=== PATIENT | male | born 1950 | race Caucasian/White ===

== ENCOUNTER 2017-05-23 19:10 | Observation (INO) | payer MEDICARE, MEDICAID ==
[~2017-05-23] VITALS: Ht 170.2 cm; Wt 91.6 kg
[~2017-05-23 19:10] MED LIST: MIRT15TA6 PO; QUET25TA PO
[2017-05-23 19:18] VITALS: BP 151/87; PULSE 94; RESP 18; O2SAT 97
[2017-05-23 20:39] LABS: BASOPHILS % (AUTO) 0.2 % (0-3); EOSINOPHILS % (AUTO) 0.4 % (0-5); MONOCYTES % (AUTO) 5.4 % (4-12); Mean Corpuscular Hemoglobin 32.2 pg (27.0-35.0); Mean Corpuscular Volume 92.6 fL (81-100); NEUTROPHILS % (AUTO) 86.7 % (40-74); Platelet Count 197 bil/L (150-400)
--- NOTE | 2017-05-23 20:39 | ED.REPORT ---
HPI-Abd Pain M 40 and Over Date of Service May 23, 2017 ED Provider: Simon Cosme MD Pt is a 67 year old male with a history of dementia who presents to the ED complaining of RLQ abdominal pain onset this morning. He c/o associated vomiting , diarrhea, fever (100.5), and decreased appetite onset yesterday. His last episode of diarrhea was at 17:00. Upon presenting to the ED, the pt's symptoms are completely resolved. Per family, the pt presented to on 05/17/17 with similar symptoms that were relieved up until yesterday. The pt has not been around anyone ill recently. Nursing Notes Stated Complaint: VOMITING,DIARRHEA Chief Complaint: General Complaint Nursing Notes Reviewed: Yes ([employer], [place] not reconciled) Allergies: Coded Allergies: No Known Allergies (Unverified Allergy, Unknown, 05/23/17) Scheduled Mirtazapine (Mirtazapine) 15 Mg Tablet 0 PO HS start with 2 tabs qHS, may increase to 3 tabs qHS as needed after one week Quetiapine Fumarate (Seroquel) 25 Mg Tablet 50 MG PO HS General Time Seen by MD: 20:36 Chief Complaint Abdominal pain Hx Obtained From: Patient Arrived By: Walk-in Sudden in Onset?: No Onset Occurred: 5 - 8 hours ago Symptom Duration: Duration unknown Location: : RLQ Quality: Painful Radiation: : Does not radiate Severity: Current: No pain currently Severity: Maximum: Moderate Recent Healthcare: Recent doctor visit Similar Sx Previous: Yes Past Medical History Past Medical History Lewy Body Dementia. Sleep apnea. Chronic edema Past Surgical History T&A Hernia Reports: Inguinal hernia repair Family History Reports: Coronary artery disease, Hypertension Smoking History Former Smoker Social History Alcohol Use: "Social" Other Social History: Good social support, , Local resident Ambulatory Status Independent Review of Systems Constitutional: Reports: Fever (resolved) Respiratory: Denies: Non-productive cough, Shortness of breath GI: Reports: Abdominal pain (resolved), Diarrhea (resolved), Vomiting (resolved ) Complete sys rev & neg: except as marked. Physical Exam Initial Vital Signs Vital Signs (First) Date Time Temp Pulse Resp B/P Pulse Ox O2 Delivery O2 Flow Rate FiO2 05/23/17 19:18 37.2 94 18 151/87 97 Room Air Initial VS: Reviewed, Vital signs normal Head / Eyes: Atraumatic, Normocephalic Neck: Supple, Full range of motion Extremities: Vascular intact, Neuro intact Skin: Warm, Dry, No cyanosis Neurologic: Alert, Oriented, Nonfocal Psychiatric: Mood/affect normal, Behavior normal General/Constitutional: Awake, Alert Dementia Respiratory / Chest: Atraumatic, Breath sounds NL, Breath sounds = bilat Cardiovascular: Heart rate NL, Regular rhythm, Heart sounds NL Abdomen: Atraumatic, Soft, Non-tender Back: Atraumatic, Full range of motion Interpretation & Diagnostics Interpretation & Diagnostics: Stool PCR panel from Thursday was negative Lab Results Interpretation Result Diagram: 05/23/17200205/23/172002 Test 05/23/17 20:03 05/23/17 21:27 White Blood Count 10.8th/mm3 (3.8-10.1) Red Blood Count 4.88mil/mm3 (4.40-5.80) Hemoglobin 15.7g/dL (13.8-17.2) Hematocrit 45.2% (41.0-50.0) Mean Corpuscular Volume 92.6fL (81-100) Mean Corpuscular Hemoglobin 32.2pg (27.0-35.0) Mean Corpuscular Hemoglobin Concent 34.7% (32.0-37.0) Red Cell Distribution Width 11.9% (12.3-15.4) Platelet Count 197bil/L (150-400) Neutrophils (%) (Auto) 86.7% (40-74) Lymphocytes (%) (Auto) 7.0% (14-46) Monocytes (%) (Auto) 5.4% (4-12) Eosinophils (%) (Auto) 0.4% (0-5) Basophils (%) (Auto) 0.2% (0-3) Sodium Level 138mEq/L (134-144) Potassium Level 4.2mEq/L (3.5-5.2) Chloride Level 100mEq/L (97-108) Carbon Dioxide Level 21mmol/L (18-29) Blood Urea Nitrogen 18mg/dL (8-27) Creatinine 0.99mg/dL (0.76-1.27) Estimat Glomerular Filtration Rate 80mL/min (>59) Glucose Level 150mg/dL (60-99) Lactic Acid Level 2.1mmol/L (0.4-2.0) Calcium Level 9.5mg/dL (8.5-10.1) Magnesium Level 2.1mg/dL (1.6-2.6) Total Bilirubin 0.6mg/dL (0.0-1.2) Aspartate Amino Transf (AST/SGOT) 21U/L (0-50) Alanine Aminotransferase (ALT/SGPT) 19U/L (0-44) Alkaline Phosphatase 73U/L (25-160) Total Protein 7.8g/dL (6.4-8.4) Albumin 4.6g/dL (3.4-5.0) Lipase 27U/L (13-60) Hold Gan Top Tube Received (Received) Lab Results Interpretation: CBC trace leukocytosis CMP normal Lactic acid marginally elevated Repeat stool panel pending Blood cultures [address] Abd / Pelvis Interpretation IMPRESSION: NO appendicities, diverticulitis, or mechanical small bowel obstruction. Nonspecific enteritis enterocolitis pattern in the right clinical setting. Inicidental findings above. Transmitted to the ED at 23:03 by Serena Chopra M.D. Study type: Abdominal CT IV contrast Interpretation / Wet Read by: Interpret - Radiologist Re-Eval/Medical Decision Med Decision/Clinical Course This is a 67-year-old male severe fluid body dementia presents with fever about pain vomiting and diarrhea. All history is from the family as the patient cannot provide any useful history due to the dementia. He resides at a local care facility. Apparently he had a vomiting diarrheal illness and was seen on Thursday with concern for dehydration, and a workup at that time including stool cultures are negative. Symptoms then resolved, but returned and were more severe today with fever, report of abdominal pain, vomiting, and then profuse diarrhea. The patient's had no antibiotic exposures, no prior history C. difficile. The patient generally appears in no distress, but he is severely demented and unable provide any additional history. His abdomen is nontender here. He has had no nausea or vomiting in the department, but has had extensive, repeated numerous loose stools. Blood work reveals a marginally elevated lactic acid, but was otherwise generally normal. Given the profuse recurrent stools for repeat stool study was sent. He received IV fluids, continues to have ongoing diarrhea-given the severity is concern for the patient developing significant dehydration and not being able to care for self. He is DNR/DNI. Given his age, dementia, and inability to provide much history-CT abdomen was obtained and the suggestive of nonspecific enteritis which physical patient. The patient is being admitted for continued hydration and monitoring. This point I am not finding indication for an [place] revealed therapy. Source of Hx: Old records Time of Eval: 22:17 Re-Evaluation/Progress Note: Pt rechecked. Updated pt on progress. All questions addressed. Time of Eval: 23:15 Re-Evaluation/Progress Note: Pt rechecked. Informed pt and family of plan for admission. Pt and family understand and agree with plan for admission. All questions addressed. Consultation : Referral / Consult Name: SriramRinajt Giron DO Consulted With: Hospitalist Call Returned at: 23:13 Phlebotomy Instructor: Will see patient, Agrees with eval, Agrees with plan, Accepts admit Differential Diagnosis: Negative: Abdominal aortic aneurysm, Abscess, Aortic dissection, Bowel obstruction, Diverticular disease, Esophageal rupture, Gun shot wound abdomen, Peritonitis Counseled Regarding: Diagnosis, Lab results, Need for admission Discharge & Departure Primary Impression: Enteritis Additional Impressions: Enterocolitis Dementia Dementia type: Lewy body dementia Dementia behavioral disturbance: without behavioral disturbance Qualified Code: G31.83 - Dementia with Lewy bodies Elevated lactic acid level Dehydration Disposition: ADMITTED TO HOSPITAL Vital Signs - All Vital Signs Date Time Temp Pulse Resp B/P Pulse Ox O2 Delivery O2 Flow Rate FiO2 05/23/17 19:18 37.2 94 18 151/87 97 Room Air )( All Prior VS Reviewed: Yes Condition: Stable Referrals: Tee Torres MD (PCP) Haibdanielito Attestation Portions of this note were transcribed by Kimmie William. I, Dr. Cosme personally performed the history, physical exam and medical decision-making; I reviewed and confirmed the accuracy of the information in the transcribed note. Signed by: Vesna Rich, 05/23/17. copies to: Tee Torres MD, Matthew F MD May 23, 2017 20:39 Kimmie Caro May 23, 2017 20:53
[2017-05-23] MEDS ORDERED: 0.9% Sodium Chloride 1,000 ML IV ONE (20:40)
[2017-05-23 20:43] LABS: Magnesium 2.1 mg/dL (1.6-2.6)
[2017-05-23 23:17] VITALS: BP 112/68; PULSE 84; RESP 17; O2SAT 96
[2017-05-23] MEDS ORDERED: Alum-Mag Hydrox-Simeth 30 mL Suspension PO PRN (23:30)
[2017-05-23] MEDS ORDERED: Polyethylene Glycol (PEG) 17 Gm Powder PO PRN (23:30)
[2017-05-23] MEDS ORDERED: Ondansetron 2 mg/mL 2 mL Inj IVPUSH PRN (23:30)
[2017-05-23 23:44] VITALS: BP 112/68; PULSE 84; RESP 17; O2SAT 96
[2017-05-24 00:08] VITALS: BP 162/80; PULSE 83; RESP 16; O2SAT 96
[2017-05-24] MEDS ORDERED: 0.9% Sodium Chloride 1,000 ML IV ONE (00:30)
--- NOTE | 2017-05-24 00:44 | PCM.HPMED ---
Subjective Date of Service May 24, 2017 Primary Provider: Admitting Physician: Rina Bhatia DO Primary Care Physician: Tee Torres MD Attending Physician: Rina Bhatia DO Admit Status: From the Emergency Department Chief Complaint: Nausea, vomiting and diarrhea History of Present Illness: Khurram Mann is a 67-year-old male with past medical history remarkable for Lewy body dementia as well as hypertension and insomnia who presents with nausea vomiting and diarrhea the last day. The patient is a long-term resident of [facility] in [place] due to his severe Lewy body dementia. One week ago the patient developed similar symptoms of nausea vomiting and diarrhea and the patient was sent to urgent care where stool was sent for evaluation which was negative and symptoms resolved after a few days without issue. The patient's daughter was contacted today by the nursing staff at [facility] stating that the nausea and vomiting and diarrhea had recurred as well as a low- grade fever reported at 100.5. The daughter states that the patient had been complaining this morning about right lower quadrant abdominal pain while having a bowel movement but denies any blood in his stool. The patient currently denies any fever or chills, nausea or abdominal pain. [facility] ED reports that the patient has had copious amounts of diarrhea with the sample sent for PCR. The daughter states that the patient has not been on any antibiotics recently and nobody in [facility] has been sick with a similar symptoms. Of note the patient's daughter has had C. difficile 3 years ago after being placed on antibiotics however has not had any recurrence since. The patient had an extended hospital stay at [facility] requiring 2 months of inpatient in September 2016 which was reported as difficulty with stabilizing the dementia through several medication changes for the first month, followed by difficulty with placement the second month as the patient's has stage IV colon cancer. Review of Systems: A comprehensive review of systems was completed and all are negative except for what included in the history of present illness. 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 Hx Alcohol Use: Yes (RARELY) Hx Substance Use: No Hx Tobacco Use: Yes Smoking Status: Former Smoker Living Arrangement: Assisted Living ([facility]) Additional Information The patient's has stage IV colon cancer Exam Vital Signs Vital Sign - Last Date Time Temp Pulse Resp B/P Pulse Ox O2 Delivery O2 Flow Rate FiO2 05/24/17 00:08 36.8 83 16 162/80 96 Room Air Intake and Output 05/23/17 05/23/17 05/24/17 Cumulative From/Thru 15:00 23:00 07:00 05/23/17 19:18 - 05/23/17 20:55 Intake Total 1000 ml 1000 ml Balance 1000 ml 1000 ml Intake IV Total 1000 ml 1000 ml Exam General: Alert and cooperative senior male appearing approximately stated age in no acute distress Eyes: Pupils equal round and reactive to light, anicteric sclera, noninjected conjunctiva HENT: Normocephalic atraumatic, moist mucous membranes without central cyanosis , oropharynx clear without purulent exudate or cobblestoning mucosa Neck: Supple, trachea midline, without thyromegaly or JVD Cardiovascular: Regular rate and regular rhythm, S1-S2 present, without murmurs rubs or gallops noted Lungs: Clear to auscultation bilaterally without wheezing rales or rhonchi Abdomen: Soft, nontender, nondistended, tympanic to percussion, normal active bowel sounds, without organomegaly Extremities: Mild edema noted in lower extremities through ankle bilaterally worse on right than left, no cyanosis or clubbing noted, pulses intact bilaterally at dorsalis pedis and radial : No Whitman catheter in place Skin: Warm and dry MSK: Able to move all extremities Neuro: Nonfocal neurologic exam Psych: Pleasant and friendly able to respond appropriately in short direct sentences however longer explanations tend to become tangential; Normal mood and affect Lab and Diagnostics Result Diagram: 05/23/17200205/23/172002 X-Rays, CTs and MRIs CT Abd / Pelvis Interpretation IMPRESSION: NO appendicities, diverticulitis, or mechanical small bowel obstruction. Nonspecific enteritis enterocolitis pattern in the right clinical setting. Inicidental findings above. Transmitted to the ED at 23:03 by Serena Chopra M.D. Study type: Abdominal CT IV contrast Interpretation / Wet Read by: Interpret - Radiologist Assessment & Plan Khurram Mann is a 67-year-old male with past medical history remarkable for Lewy body dementia as well as hypertension and insomnia who presents with nausea vomiting and diarrhea the last day. # Acute gastroenteritis, POA - Patient's daughter reports a history of nausea vomiting and diarrhea with low- grade fever of 100.5 per nursing staff at [facility] - Patient does not meet SIRS criteria with WBC 10.8 without bandemia, HR 94, RR 18, Temp 37.2 - Procalcitonin of 0.16 not consistent with bacterial infection - Urgent care stool PCR from May 17 was negative - [facility] ED reports copious diarrhea at least 6 bouts over 6 hours, with samples sent for repeat PCR - CT scan abdomen and pelvis with IV contrast shows nonspecific enteritis and enterocolitis - Patient received 1 L of IV fluids in the ED, will be given a second liter as his increased risk of IV contrast induced nephropathy secondary to dehydration - Lactic Acid of 2.1 in ED this was redrawn at admission and will be trended q 2 hours until normal - Zofran available # Chronic Lewy Body Dementia - Rivastigmine 6mg BID to be restarted in the AM # Chronic Insomnia - Patient is on chronic Trazodone and Melatonin - will hold PO options to avoid risk of vomiting and aspiration - monitor # Chronic hypertension - Continue regular amlodipine 5 mg in the a.m. # Acute hyperglycemia - Hemoglobin A1c ordered # history of obstructive sleep apnea - Continuous O2 monitoring overnight DVT prophylaxis: Heparin 5000u TID subcutaneous GI prophylaxis: Not indicated at this time Bowel regimen available when necessary CODE STATUS: DNR/DNI discussed with ED provider and family The patient is admitted for observation status with expected length of stay less than to midnights giving presenting symptoms, likely diagnosis, possible complications, and required treatment. Pain Evaluation: Adequate Pain Control GI Prophylaxis: Not indicated VTE Prophylaxis Indicated: Meets Criteria for Anticoag Therapy VTE Prophylaxis: Sub-Q Enoxaparin Resuscitation Status: DNR/DNI:Do Not Resuscitate/Intubate Attending Statement The patient was seen and examined together with house staff on 05/23/2017 and I agree with the history, exam and plan as outlined in the note above. Janak Coates DO May 24, 2017 00:44 Rina Bhatia DO May 24, 2017 05:09
[2017-05-24] MEDS: Heparin 5,000 Unit/mL Inj SUBQ SCH ×3 (01:19→16:30)
[2017-05-24 03:48] VITALS: BP 142/74; PULSE 78; RESP 16; O2SAT 97
[2017-05-24] MEDS ORDERED: 0.9% Sodium Chloride 1,000 ML IV SCH (05:10)
--- NOTE | 2017-05-24 05:40 | NUR ---
Admit to [facility] Admit from ED, dx: diarrhea, dehydration. Patient is alert, oriented to self and occassionally place, w/ hx of dementia. Able to voice needs, pleasant and cooperative. SBA mobility, steady gait. Accompanied by daughter Martha, who left her number on the white board. CT ABD and pelvis pending. DNR/DNI. Per ED report, patient received 1L NS prior to admitting to [facility]. Additional 1L ordered, given. No further loose stools at time of this note. CDiff toxin/PCR sent. Patient oriented to room and use of call light. Has been resting comfortably thru the NOC. VS are stable. CTM for changes. Addendum: IVF ordered, NS at 100cc/hour infusing via LPIV. No further loose stools at this time. Mentation remains confused, but easily directable. BA on for safety. Urinal at bedside, but exits the bed w/o assistance. Frequent safety/room checks thru rest of NOC.
[2017-05-24 06:05] LABS: BASOPHILS % (AUTO) 0.3 % (0-3); EOSINOPHILS % (AUTO) 3.6 % (0-5); MONOCYTES % (AUTO) 9.6 % (4-12); Mean Corpuscular Volume 93.5 fL (81-100); NEUTROPHILS % (AUTO) 64.8 % (40-74); Platelet Count 145 bil/L (150-400)
[2017-05-24] MEDS ORDERED: AMLO5TAB2 PO (07:32)
[2017-05-24] MEDS ORDERED: RIVA6CAP5 PO (07:32)
[2017-05-24] MEDS ORDERED: MELA3TAB11 PO (07:32)
[2017-05-24] MEDS ORDERED: TRAZ-115 PO (07:33)
--- NOTE | 2017-05-24 08:19 | DRSVH ---
PROCEDURE: CT ABDOMEN AND PELVIS WITH CONTRAST ([id number]) INDICATIONS: FEVER, ABD PAIN TECHNIQUE: After the administration of intravenous contrast, 5 mm thick sections acquired from the diaphragm to the symphysis. 5 mm coronal and sagittal reformats were acquired. For radiation dose reduction, the following was used: automated exposure control, adjustment of mA and/or kV according to patient siz e. COMPARISON: None. FINDINGS: Image quality: Good ABDOMEN: Lung bases: Lung bases are clear. Heart size is normal. Solid organs: Liver and spleen are normal in size and enhancement. Gallbladder is within normal miller its.. Biliary system is non dilated. Pancreas enhances normally. No adrenal nodules. Kidneys demo nstrate normal size and enhancement, without hydronephrosis. Peritoneum and bowel: Bowel loops demonstrate normal wall thickness and caliber. No free fluid or a ir. There is a normal appendix. Liquid stool is noted throughout the colon suggesting diarrhea. Nodes and vessels: No retroperitoneal or mesenteric adenopathy by size criteria. Aorta and inferior vena cava are normal in size. Miscellaneous: No ventral hernias. PELVIS: Genitourinary: Bladder wall thickness is normal. Miscellaneous: No adenopathy. Small fatty right inguinal hernia noted. Bones: There is an L5 pars defect with a grade 1-2 anterolisthesis of L5 on S1.. No vertebral body c ompression fractures. IMPRESSION: Cause of the right lower quadrant pain not identified. The gallbladder, right kidney, appendix are all normal. Air-fluid levels indicating liquid stool are seen throughout the colon to the rectum. Diarrhea with b e likely. Is there any evidence for gastroenteritis? L5 pars defect noted. Dictated by: Emerson Barnes M.D. on 05/24/2017 at 8:12 this report corresponds to the findings of dillan cotton preliminary NSR report. Approved by: Emerson Barnes M.D. on 05/24/2017 at 8:17
--- NOTE | 2017-05-24 08:29 | NUR ---
confusion/agitation pt has pulled his IV out and wants to leave. pt doesn't believe this RN when I tell him that I have called his daughter, doesn't believe it is her. pt refuses to go to his room, this RN has requested a sitter or hugs tag. pt's daughter is going to come in as soon as she can to be with pt.
--- NOTE | 2017-05-24 09:01 | NUR ---
refusing care pt will not allow this RN or the WAREHOUSE PACKER to assess, treat, or help in anyway. pt will not return to his room. MD aware and will see patient next.
--- NOTE | 2017-05-24 09:01 | NUR ---
Behavior Pt up pacing in the selby, gown half on-unwilling to put on pants or robe. Unable to be redirected back to his room, unable to reorient-pt becomes suspicious "that's what the other ones were telling me, but it's not true! You all say you're going to do it, but then it's a different story" (unable to clarify what pt wants). , Nolvia, called at pt's request-she is unable to come visit as she is [facility] on vacation and cannot come in, she reiterated to this RN that it is important for pt to take his meds or "he's gonna just take off". MD aware of situation
--- NOTE | 2017-05-24 09:29 | PCM.PNMED ---
Subjective Date of Service May 24, 2017 Subjective Patient wandering about the floor, pulled out IV and trying to remove gown. However no real diarrhea since admission, on soft stool. No other problems noted. Exam Vital Signs Vital Sign - Last Date Time Temp Pulse Resp B/P Pulse Ox O2 Delivery O2 Flow Rate FiO2 05/24/17 03:48 36.6 78 16 142/74 97 Room Air Intake and Output 05/23/17 05/23/17 05/24/17 Cumulative From/Thru 15:00 23:00 07:00 05/23/17 19:18 - 05/24/17 05:58 Intake Total 1000 ml 999 ml 1999 ml Output Total 300 ml 300 ml Balance 1000 ml 699 ml 1699 ml Intake Oral 0 ml 0 ml IV Total 1000 ml 999 ml 1999 ml Output Urine Total 300 ml 300 ml Exam Skin; warm dry no rash CV; reg no murmur Resp; clear GI; soft non acute benigh, soft Lab and Diagnostics Result Diagram: 05/24/17 0520 05/24/17 0520 X-Rays, CTs and MRIs CT Abd / Pelvis Interpretation IMPRESSION: NO appendicities, diverticulitis, or mechanical small bowel obstruction. Nonspecific enteritis enterocolitis pattern in the right clinical setting. Inicidental findings above. Transmitted to the ED at 23:03 by Serena Chopra M.D. Study type: Abdominal CT IV contrast Interpretation / Wet Read by: Interpret - Radiologist Assessment & Plan Khurram Mann is a 67-year-old male with past medical history remarkable for Lewy body dementia as well as hypertension and insomnia who presents with nausea vomiting and diarrhea the last day. # Acute Diarrhea, POA, improving -differntial seconday to exalon, non specific gastroenteritis - Urgent care stool PCR from May 17 was negative as it was here yesterday - [facility] ED reports copious diarrhea at least 6 bouts over 6 hours, with samples sent for repeat PCR - CT scan abdomen and pelvis with IV contrast shows nonspecific enteritis and enterocolitis - discontinue exelon (family daughter tells me dose was increased two weeks ago ( resume at lower dose # Chronic Lewy Body Dementia - Rivastigmine 6mg BID hold for now # Chronic Insomnia - continue is on chronic Trazodone and Melatonin # Chronic hypertension - Continue regular amlodipine 5 mg in the a.m. # Acute hyperglycemia - Hemoglobin A1c ordered # history of obstructive sleep apnea - Continuous O2 monitoring overnight DVT prophylaxis: Heparin 5000u TID subcutaneous GI prophylaxis: Not indicated at this time Bowel regimen available when necessary CODE STATUS: DNR/DNI discussed with ED provider and family The patient is admitted for observation status with expected length of stay less than to midnights giving presenting symptoms, likely diagnosis, possible complications, and required treatment. Disposition; live [facility] Hosea Burks -pcp is Dr Alcocer GI Prophylaxis: Not indicated VTE Prophylaxis: Sub-Q Enoxaparin Resuscitation Status: DNR/DNI:Do Not Resuscitate/Intubate Sierra Irvin MD May 24, 2017 09:29 VTE Prophylaxis: Sub-Q Enoxaparin Resuscitation Status: DNR/DNI:Do Not Resuscitate/Intubate Sierra Irvin MD May 24, 2017 09:29
[2017-05-24 10:18] VITALS: BP 129/73; PULSE 71; RESP 16; O2SAT 96
--- NOTE | 2017-05-24 10:33 | NUR ---
67 Y/O PT ADMITTED WITH NAUSEA, VOMITING AND DIARRHEA. ORDERS RECEIVED FOR CLINICAL BEDSIDE EVALUATION. PT. WITH KNOWN HISTORY OF LEWY BODY DEMENTIA. LOSS PREVENTION LEAD ARRIVED ON FLOOR TO COMPLETE EVAL, HOWEVER, PT. WAS WALKING THE HALLS AND NOT AGREEABLE TO PO TRIALS OR RETURNING TO ROOM. SPOKE WITH RN AND WILL ATTEMPT TO COMPLETE EVALUATION AT LATER TIME.
--- NOTE | 2017-05-24 15:24 | NUR ---
Evaluation completed. Please go to "Notes" then click on "Assessments and Notes" (bottom left corner of screen). Then select appropriate discipline tab on top of screen.
--- NOTE | 2017-05-24 17:54 | NUR ---
Social Work- Initial Assessment/Readiness for D/C Data: See Initial Assessment. Pt is a 67 year old male admitted 05/23/17 for diarrhea, dehydration per H&P. Pt's insurance is [facility], [employer], and [facility] Supp. Pt's PCP is Tee Torres MD. Pt's designated medicare contact specialist is Martha Genaro, . Pt discussed in multidisciplinary rounds, pt is likely to d/c home tomorrow no needs. T/C to Martha Lam to complete assessment. Pt has dementia at baseline and was not appropriate to complete assessment. Pt resides at [facility] where he is physically independent at uses no DME at baseline. Pt receives assistance with dressing, cueing, redirection, and bathing. Pt has no HH or SNF history, no LTC or VA benefits. Pt has DPOA on file in EMR. Pt will d/c back to [facility] with Martha to transport via POV. SW placed d/c planning checklist in room for Martha when she visits as well as placed phone number and plan on whiteboard. All updated and agreeable to plan. Pt has been observed ambulating in the hallway this morning. SW will continue to follow. Assessment: Pt who is unable to care for self but has the appropriate support at home. Plan: Pt to return home to [facility] with daughter to transport via POV. No d/c needs identified. SW will continue to follow. ELVIRA Cota Addendum: 05/24/17 at 1758 by MARIAM GILBERT Amended: Links added.
[2017-05-24 19:13] VITALS: BP 145/77; PULSE 68; RESP 16; O2SAT 98
[2017-05-24 21:10] LABS: APPEARANCE,URINE CLEAR (CLEAR,HAZY); COLOR,URINE YELLOW (YELLOW); OCCULT BLOOD,URINE NEGATIVE (NEGATIVE); UROBILINOGEN,URINE NORMAL (NORMAL)
[2017-05-25] MEDS: Heparin 5,000 Unit/mL Inj SUBQ SCH ×2 (00:19→09:02)
[2017-05-25 04:52] VITALS: BP 128/74; PULSE 62; RESP 16; O2SAT 94
--- NOTE | 2017-05-25 10:06 | NUR ---
Case Management: Attempted to call deliver DAN to spouse via telephone, Nolvia Mann [phone] and no answer. Kinsey Ritter RN
--- NOTE | 2017-05-25 10:17 | PCM.DIMED ---
Discharge Instructions Date of Service May 25, 2017 Dates of Hospitalization May 23, 2017 at 23:18 Discharge Diagnosis Discharge Diagnosis # Acute Diarrhea probably secondary to exelon # Chronic Lewy Body Dementia # Chronic Insomnia # Chronic hypertension # Acute hyperglycemia # history of obstructive sleep apnea Diet Discharge Diet: Heart Healthy Activity Discharge Activity: Limited until seen by PCP Call your provider Call your provider for: Fever or Chills Patient Instructions Follow-up with PCP in: 1 week Sierra Irvin MD May 25, 2017 10:17
[2017-05-25] MEDS ORDERED: RIVA1.5C6 PO (10:19)
--- NOTE | 2017-05-25 10:25 | PCM.DC.MED ---
Discharge Summary Date of Service May 25, 2017 Dates of Hospitalization Date of Hospital Admission May 23, 2017 at 23:18 Date of Discharge: May 25, 2017 Providers: Admitting Physician: Rina Bhatia DO Primary Care Physician: Tee Torres MD Attending Physician: Sierra Irvin MD Diagnosis at Time of Discharge Diagnosis at Time of Discharge # Acute Diarrhea, POA, resolved # Chronic Lewy Body Dementia # Chronic Insomnia # Chronic hypertension # Acute hyperglycemia # history of obstructive sleep apnea Procedures XRay, CTs & MRIs CT Abd / Pelvis Interpretation IMPRESSION: NO appendicities, diverticulitis, or mechanical small bowel obstruction. Nonspecific enteritis enterocolitis pattern in the right clinical setting. Inicidental findings above. Transmitted to the ED at 23:03 by Serena Chopra M.D. Study type: Abdominal CT IV contrast Interpretation / Wet Read by: Interpret - Radiologist Brief History Khurram Mann is a 67-year-old male with past medical history remarkable for Lewy body dementia as well as hypertension and insomnia who presents with nausea vomiting and diarrhea the last day. The patient is a long-term resident of [facility] in [place] due to his severe Lewy body dementia. One week ago the patient developed similar symptoms of nausea vomiting and diarrhea and the patient was sent to urgent care where stool was sent for evaluation which was negative and symptoms resolved after a few days without issue. The patient's daughter was contacted today by the nursing staff at [facility] stating that the nausea and vomiting and diarrhea had recurred as well as a low- grade fever reported at 100.5. The daughter states that the patient had been complaining this morning about right lower quadrant abdominal pain while having a bowel movement but denies any blood in his stool. The patient currently denies any fever or chills, nausea or abdominal pain. [facility] ED reports that the patient has had copious amounts of diarrhea with the sample sent for PCR. The daughter states that the patient has not been on any antibiotics recently and nobody in [facility] has been sick with a similar symptoms. Of note the patient's daughter has had C. difficile 3 years ago after being placed on antibiotics however has not had any recurrence since. The patient had an extended hospital stay at [facility] requiring 2 months of inpatient in September 2016 which was reported as difficulty with stabilizing the dementia through several medication changes for the first month, followed by difficulty with placement the second month as the patient's has stage IV colon cancer. Hospital Course Khurram Mann is a 67-year-old male with past medical history remarkable for Lewy body dementia as well as hypertension and insomnia who presents with nausea vomiting and diarrhea the last day. # Acute Diarrhea, POA, improving - differntial seconday to exalon, non specific gastroenteritis - Urgent care stool PCR from May 17 was negative as it was here [facility] copious diarrhea at least 6 bouts over 6 hours, with samples sent for repeat PCR - CT scan abdomen and pelvis with IV contrast shows nonspecific enteritis and enterocolitis - discontinue exelon (family daughter tells me dose was increased two weeks ag -FOR DISCARGE; diarrhea stoped with cesation of exelon can dischage ptient home today on 1/2 the dose, ie, exelon 3 po bid. # Chronic Lewy Body Dementia - Rivastigmine 6mg BID reduced to 3 po bid # Chronic Insomnia - continue is on chronic Trazodone and Melatonin # Chronic hypertension - Continue regular amlodipine 5 mg in the a.m. # Acute hyperglycemia - Hemoglobin A1c ordered # history of obstructive sleep apnea - Continuous O2 monitoring overnight DVT prophylaxis: Heparin 5000u TID subcutaneous GI prophylaxis: Not indicated at this time Bowel regimen available when necessary CODE STATUS: DNR/DNI discussed with ED provider and family The patient is admitted for observation status with expected length of stay less than to midnights giving presenting symptoms, likely diagnosis, possible complications, and required treatment. Disposition; live [facility] Hosea Burks -pcp is Dr Alcocer Exam Vital Signs (Last) Date Time Temp Pulse Resp B/P Pulse Ox O2 Delivery O2 Flow Rate FiO2 05/25/17 04:52 37.7 62 16 128/74 94 Room Air Exam Resting comfortable Skin; warm dry without rash CV; reg no murmur GI; soft non acute, no tenderness no edema Test 05/23/17 20:03 05/23/17 21:27 05/24/17 02:55 05/24/17 05:20 Magnesium Level 2.1mg/dL (1.6-2.6) Total Bilirubin 0.6mg/dL (0.0-1.2) Aspartate Amino Transf (AST/SGOT) 21U/L (0-50) Alanine Aminotransferase (ALT/SGPT) 19U/L (0-44) Alkaline Phosphatase 73U/L (25-160) Total Protein 7.8g/dL (6.4-8.4) Albumin 4.6g/dL (3.4-5.0) Lipase 27U/L (13-60) Procalcitonin 0.16ng/mL (0.00-0.08) Hold Gan Top Tube Received (Received) Lactic Acid Level 1.1mmol/L (0.4-2.0) White Blood Count 6.4th/mm3 (3.8-10.1) Red Blood Count 4.00mil/mm3 (4.40-5.80) Hemoglobin 12.8g/dL (13.8-17.2) Hematocrit 37.4% (41.0-50.0) Mean Corpuscular Volume 93.5fL (81-100) Mean Corpuscular Hemoglobin 32.0pg (27.0-35.0) Mean Corpuscular Hemoglobin Concent 34.2% (32.0-37.0) Red Cell Distribution Width 11.9% (12.3-15.4) Platelet Count 145bil/L (150-400) Neutrophils (%) (Auto) 64.8% (40-74) Lymphocytes (%) (Auto) 21.5% (14-46) Monocytes (%) (Auto) 9.6% (4-12) Eosinophils (%) (Auto) 3.6% (0-5) Basophils (%) (Auto) 0.3% (0-3) Sodium Level 141mEq/L (134-144) Potassium Level 4.0mEq/L (3.5-5.2) Chloride Level 105mEq/L (97-108) Carbon Dioxide Level 22mmol/L (18-29) Blood Urea Nitrogen 15mg/dL (8-27) Creatinine 0.82mg/dL (0.76-1.27) Estimat Glomerular Filtration Rate 100mL/min (>59) Glucose Level 95mg/dL (60-99) Calcium Level 8.2mg/dL (8.5-10.1) Test 05/24/17 20:50 Urine Color Yellow (YELLOW) Urine Appearance Clear (CLEAR,HAZY) Urine pH 6.0 (5.0-8.0) Urine Specific [place] 1.010 (1.003-1.035) Urine Protein Negativemg/dL (NEG,TRACE) Urine Glucose (UA) Negativemg/dL (NEGATIVE) Urine Ketones Negativemg/dL (NEGATIVE) Urine Occult Blood Negative (NEGATIVE) Urine Nitrite Negative (NEGATIVE) Urine Bilirubin Negative (NEGATIVE) Urine Urobilinogen Normalmg/dL (NORMAL) Urine Leukocyte Esterase Negative (NEGATIVE) Urine RBC 0-2/hpf (0-2) Urine WBC 0-5/hpf (0-5) Urine Epithelial Cells Occasional/hpf (NONE-MOD) Urine Crystals None seen (NONE SEEN) Urine Bacteria None/hpf (NONE-FEW) Urine Hyaline Casts None/lpf (NONE) Urine Granular Casts None seen (NONE SEEN) Urine Waxy Casts None seen (NONE SEEN) Urine Red Blood Cell Casts None seen (NONE SEEN) Urine White Blood Cell Casts None seen (NONE SEEN) Urine Mucus None seen (None Seen) Urine Trichomonas None seen (NONE SEEN) Urine Yeast None (NONE SEEN) Urinalysis Comment None Urine Culture Reflexed Not indicated Discharge Medications Discharge Medications Amlodipine (Amlodipine) 5 Mg Tablet 5 MG PO DAILY (Reported) Melatonin (Melatonin) 3 Mg Tablet.er 3 MG PO HS (Reported) Mirtazapine (Mirtazapine) 15 Mg Tablet 0 PO HS start with 2 tabs qHS, may increase to 3 tabs qHS as needed after one week Prescribed by: BROOKE WRIGHT DO Rivastigmine (Rivastigmine) 6 Mg Capsule 6 MG PO BIDAC (Reported) Rivastigmine (Rivastigmine) 1.5 Mg Capsule 1.5 MG PO BID Prescribed by: Sierra IRVIN MD Trazodone (Trazodone) 50 Mg Tablet 50 MG PO HS (Reported) Followup Plan Discharge Diet: Heart Healthy Discharge Activity: Limited until seen by PCP Follow-up with PCP in: 1 week Attending Statement 35 min time spent discharging pt home so far today copies to: Tee Torres MD, D Geoffrey MD May 25, 2017 10:25
[2017-05-25] MEDS ORDERED: RIVA3CAP5 PO (10:27)
--- NOTE | 2017-05-25 11:14 | NUR ---
Social Work-discharge: Data:EMR reviewed. Pt is on day 2 of hospitalization for diarrhea per H&P. Pt is medically stable for discharge. SW spoke with Raven at [facility] [phone] who confirms they are able to accept pt back today. Raven states they do not need anything faxed from the hospital. RN to call daughter Martha for her to provide transport back today. No other SW needs identified. All updated and agreeable to plan. Assessment:pt who resides at [facility]. Plan:Pt to discharge back to [facility] today via POV. No discharge needs identified. All updated and agreeable to plan. ELVIRA Love
--- NOTE | 2017-05-25 11:32 | NUR ---
discharge paperwork reviewed with daughter, patient, and admit nurse at [facility]. No questions at this time. Daughter is transporting patient to care facility. pt denies pain/distress, and prefers to walk himself to car (refused W/C transport).
--- NOTE | 2017-05-25 13:56 | NUR ---
RX left in chart This RN has called [facility] several times, always busy. This RN also called [facility] to explain what happened, they ask that we send the correct script to [facility]. This RN attempted to fax RX, fax # [phone] and ph [phone].
== END 2017-05-25 11:31 | disposition home or self-care (01) ==
LOC: SED 19:10 → MPC 23:18
PROVIDERS: ADMIT Internal Medicine; ATTEND Internal Medicine
DX: K52.9 Noninfective gastroenteritis and colitis, unspecified (principal); R19.7 Diarrhea, unspecified; G31.83 Neurocognitive disorder with Lewy bodies; F51.04 Psychophysiologic insomnia; I10 Essential (primary) hypertension; R73.9 Hyperglycemia, unspecified; G47.33 Obstructive sleep apnea (adult) (pediatric); E86.0 Dehydration; R74.0 Nonspecific elevation of levels of transaminase and lactic acid dehydrogenase [LDH]; R60.9 Edema, unspecified; Z87.891 Personal history of nicotine dependence
CPT/HCPCS: 36415; 74177; 80048; 80053; 81000; 83036; 83605; 83690; 83735; 84145; 85025; 87040; 87507; 92610; 96372; 99285; G0378; J1644; J7030; Q9967